=== PATIENT | male | born 1955 | race Caucasian/White ===

== ENCOUNTER 2017-07-05 11:49 | Emergency (ER) | payer MEDICARE ==
[2017-07-05] MEDS ORDERED: KEPPRA 1,000 MG/NS 0.75% 100ML 1,000 MG/100 ML BAG IV ONE ×2 (11:57→11:59)
[2017-07-05 13:34] LABS: Basophils % (Auto) 0.4 % (0.0-1.8); Eosinophils % (Auto) 1.4 % (0.0-4.3); Hematocrit 39.5 % (35.5-45.6); Hemoglobin 13.2 gm/dl (11.8-15.2); Mean Corpuscular HGB Conc 34 % (32-34); Mean Corpuscular Hemoglobin 29 pg (28-32); Mean Corpuscular Volume 87 fl (84-94); Platelet Count 171 K/mm3 (140-440); Red Blood Count 4.54 M/mm3 (3.65-5.03); Red Cell Distribution Width 14.7 % (13.2-15.2); White Blood Count 5.1 K/mm3 (4.5-11.0)
[2017-07-05 13:41] LABS: Anion Gap 19 mmol/L; Blood Urea Nitrogen 12 mg/dL (9-20); Calcium 8.7 mg/dL (8.4-10.2); Carbon Dioxide 23 mmol/L (22-30); Glucose 89 mg/dL (75-100); Potassium 3.8 mmol/L (3.6-5.0); Sodium 143 mmol/L (137-145)
--- NOTE | 2017-07-05 14:02 | Cat Scan Report ---
CT HEAD WITHOUT CONTRAST: HISTORY: Seizure, pain. Serial contiguous axial images were obtained through the cranium. Intravenous contrast material was not administered. The ventricles are normal in size and appearance. There is no mass effect or midline shift. No areas of abnormally increased or decreased attenuation are seen. No mass lesion is seen. The mastoid air cells and visualized portions of the sinuses are normal. IMPRESSION: Cranial CT scan within normal limits.
--- NOTE | 2017-07-05 15:30 | Emergency Department Report ---
ED Altered Mental Status HPI - General Chief Complaint: Seizure Stated Complaint: SEIZURE Time Seen by Provider: 07/05/17 14:39 Source: patient, family, EMS, bus and trolley inspecting dispatcher (family-offered a bus and trolley inspecting dispatcher.) Mode of arrival: Stretcher Limitations: Language Barrier, Altered Mental Status - History of Present Illness Initial Comments: 61-year-old male here with acute tonic-clonic seizure. Patient is known seizure history. He has daily seizures according to family however they are not always as significant as this one. This one lasted for approximately 12-15 minutes according to family. He had full tonic-clonic seizure activity at that time. He was given 2.5 mg of Versed by EMS. He stopped seizing prior to arrival. Here he initially was very somnolent. Currently he is answering questions and responding to his sons. He speaks [place]ian. Complaint: other (seizure) -: Sudden Context: seizure disorder Associated Symptoms: fever/chills, malaise. denies: cough, diaphoresis, headaches, nausea/vomiting, foul smelling urine, difficulty walking - Related Data Allergies Allergy/AdvReac Type Severity Reaction Status Date / Time No Known Allergies Allergy Verified 07/05/17 12:01 ED Review of Systems ROS: Stated complaint: SEIZURE Other details as noted in HPI Comment: All other systems reviewed and negative (obtained through family) Constitutional: chills, fever, malaise Eyes: denies: eye pain, eye discharge ENT: denies: ear pain, throat pain Respiratory: denies: cough, shortness of breath, wheezing Cardiovascular: denies: chest pain, palpitations Endocrine: no symptoms reported Gastrointestinal: denies: abdominal pain, nausea, diarrhea Genitourinary: denies: urgency, dysuria Musculoskeletal: denies: back pain, joint swelling, arthralgia Skin: denies: rash, lesions Neurological: denies: headache, weakness, paresthesias Psychiatric: denies: anxiety, depression Hematological/Lymphatic: denies: easy bleeding, easy bruising ED Past Medical Hx - Past Medical History Previous Medical History?: Yes Hx Hypertension: Yes Hx Diabetes: Yes Hx Seizures: Yes - Surgical History Past Surgical History?: Yes Additional Surgical History: cardiac bypass - Family History Family history: no significant - Social History Smoking Status: Former Smoker Substance Use Type: Alcohol ED Physical Exam - General Limitations: Language Barrier, Altered Mental Status General appearance: alert, in no apparent distress, postictal - Head Head exam: Present: atraumatic, normocephalic - Eye Eye exam: Present: normal appearance, PERRL, EOMI - ENT ENT exam: Present: mucous membranes moist - Neck Neck exam: Present: normal inspection - Respiratory Respiratory exam: Present: normal lung sounds bilaterally. Absent: respiratory distress, wheezes, rales - Cardiovascular Cardiovascular Exam: Present: regular rate, normal rhythm. Absent: systolic murmur, diastolic murmur, rubs, gallop - GI/Abdominal GI/Abdominal exam: Present: soft, normal bowel sounds. Absent: distended, tenderness - Rectal Rectal exam: Present: deferred - Extremities Exam Extremities exam: Present: normal inspection - Back Exam Back exam: Present: normal inspection - Neurological Exam Neurological exam: Present: alert, CN II-XII intact, normal gait - Psychiatric Psychiatric exam: Present: normal affect, normal mood - Skin Skin exam: Present: warm, dry, intact, normal color. Absent: rash ED Course Vital Signs 07/05/17 07/05/17 07/05/17 11:48 12:01 12:13 Temperature 98.2 F Pulse Rate 73 Respiratory 19 19 Rate Blood Pressure 120/70 O2 Sat by Pulse 94 94 95 Oximetry 07/05/17 07/05/17 07/05/17 12:21 12:30 13:00 Temperature Pulse Rate 68 71 67 Respiratory 19 15 21 Rate Blood Pressure 115/69 109/74 O2 Sat by Pulse 96 97 95 Oximetry 07/05/17 07/05/17 07/05/17 13:30 15:44 15:45 Temperature Pulse Rate 64 Respiratory 10 L Rate Blood Pressure 113/77 117/75 O2 Sat by Pulse 96 95 93 Oximetry - Lab Data Result diagrams: 07/05/17 13:11 07/05/17 13:11 Lab Results 07/05/17 07/05/17 07/05/17 Range/Units 12:17 13:11 13:11 WBC 5.1 (4.5-11.0) K/mm3 RBC 4.54 (3.65-5.03) M/mm3 Hgb 13.2 (11.8-15.2) gm/dl Hct 39.5 (35.5-45.6) % MCV 87 (84-94) fl MCH 29 (28-32) pg MCHC 34 (32-34) % RDW 14.7 (13.2-15.2) % Plt Count 171 (140-440) K/mm3 Lymph % (Auto) 24.6 (13.4-35.0) % [place] % (Auto) 9.0 H (0.0-7.3) % Eos % (Auto) 1.4 (0.0-4.3) % Baso % (Auto) 0.4 (0.0-1.8) % Lymph # 1.3 (1.2-5.4) K/mm3 [place] # 0.5 (0.0-0.8) K/mm3 Eos # 0.1 (0.0-0.4) K/mm3 Baso # 0.0 (0.0-0.1) K/mm3 Seg Neutrophils % 64.6 (40.0-70.0) % Seg Neutrophils # 3.3 (1.8-7.7) K/mm3 Sodium 143 (137-145) mmol/L Potassium 3.8 (3.6-5.0) mmol/L Chloride 105.0 (98-107) mmol/L Carbon Dioxide 23 (22-30) mmol/L Anion Gap 19 mmol/L BUN 12 (9-20) mg/dL Creatinine 0.6 L (0.8-1.5) mg/dL Estimated GFR > 60 ml/min BUN/Creatinine Ratio 20.00 % Glucose 89 (75-100) mg/dL POC Glucose 129 H (70-105) Calcium 8.7 (8.4-10.2) mg/dL Troponin T < 0.010 (0.00-0.029) ng/mL 07/05/17 Range/Units 14:25 WBC (4.5-11.0) K/mm3 RBC (3.65-5.03) M/mm3 Hgb (11.8-15.2) gm/dl Hct (35.5-45.6) % MCV (84-94) fl MCH (28-32) pg MCHC (32-34) % RDW (13.2-15.2) % Plt Count (140-440) K/mm3 Lymph % (Auto) (13.4-35.0) % [place] % (Auto) (0.0-7.3) % Eos % (Auto) (0.0-4.3) % Baso % (Auto) (0.0-1.8) % Lymph # (1.2-5.4) K/mm3 [place] # (0.0-0.8) K/mm3 Eos # (0.0-0.4) K/mm3 Baso # (0.0-0.1) K/mm3 Seg Neutrophils % (40.0-70.0) % Seg Neutrophils # (1.8-7.7) K/mm3 Sodium (137-145) mmol/L Potassium (3.6-5.0) mmol/L Chloride (98-107) mmol/L Carbon Dioxide (22-30) mmol/L Anion Gap mmol/L BUN (9-20) mg/dL Creatinine (0.8-1.5) mg/dL Estimated GFR ml/min BUN/Creatinine Ratio % Glucose (75-100) mg/dL POC Glucose (70-105) Calcium (8.4-10.2) mg/dL Troponin T < 0.010 (0.00-0.029) ng/mL - Radiology Data Radiology results: report reviewed, image reviewed - Medical Decision Making Patient is a 61-year-old male has a known seizure history presenting with recurrent seizure. Patient is on Vimpat 200 mg twice daily and Keppra 1000 mg twice a day. Head CT is negative. Labs are unremarkable. At this point I do not feel the patient needs further workup and I will discharge him home to follow-up with his outpatient neurologist. Discussed with family and they're comfortable with this plan. Patient is current currently alert and oriented 3. Plan have him follow-up with his outpatient neurologist. Portions of this chart were dictated with dictation software. There may be dictation errors contained within this note. Critical care attestation.: If time is entered above; I have spent that time in minutes in the direct care of this critically ill patient, excluding procedure time. ED Disposition Clinical Impression: Seizure Disposition: DC-01 TO HOME OR SELFCARE Is pt being admited?: No Condition: Stable Instructions: Epilepsy (ED) Additional Instructions: Please follow-up with your neurologist as an outpatient. Referrals: PRIMARY CARE, [Primary Care Provider] - 3-5 Days
[2017-07-05 15:53] VITALS: BP 117/75
--- NOTE | 2017-07-05 16:11 | XRay Report ---
PORTABLE CHEST INDICATION: Seizure. COMPARISON: None similar. FINDINGS: Portable, frontal chest radiograph demonstrates aortic arch/proximal descending aortic stent. Normal heart size. Clear lungs. Few left apical surgical clips. EKG leads. Intact bones. CONCLUSION: No acute chest process with aortic stent noted, as described. Thank you for the opportunity to participate in this patient's care.
== END 2017-07-05 16:37 | disposition home or self-care (01) ==
LOC: ED 11:49
DX: G40.909 Epilepsy, unspecified, not intractable, without status epilepticus (principal); I10 Essential (primary) hypertension; E11.9 Type 2 diabetes mellitus without complications; Z87.891 Personal history of nicotine dependence
CPT/HCPCS: 36415; 70450; 71010; 80048; 82962; 84484; 85025; 93005; 93010; 96374; 99285; J1953